=== PATIENT | female | born 2000 | race Two or more races ===

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

== ENCOUNTER 2018-06-22 11:44 | Emergency (ER) | payer MEDICAID ==
[~2018-06-22] VITALS: Ht 162.6 cm; Wt 95.7 kg
[2018-06-22 12:26] VITALS: BP 119/70
== END 2018-06-22 14:03 | disposition home or self-care (01) ==
LOC: ER 11:44
DX: O26.892 Other specified pregnancy related conditions, second trimester (principal); R10.9 Unspecified abdominal pain; N89.8 Other specified noninflammatory disorders of vagina; Z3A.16 16 weeks gestation of pregnancy
CPT/HCPCS: 76805; 81002

== ENCOUNTER 2024-01-22 08:34 | Emergency (ER) | payer MEDICAID ==
[~2024-01-22] VITALS: Ht 162.6 cm; Wt 116.6 kg
[2024-01-22 08:40] VITALS: TEMP 98.2
[2024-01-22 08:53] VITALS: BP 114/72
[2024-01-22 09:22] VITALS: PULSE 109; RESP 20; O2SAT 94
[2024-01-22] MEDS: KETOROLAC TROMETH 60MG/2ML VIAL IM ONE (09:54)
[2024-01-22] MEDS ORDERED: TRAM50TA2 PO (10:08)
== END 2024-01-22 10:15 | disposition home or self-care (01) ==
LOC: ER 08:34
DX: S86.811A Strain of other muscle(s) and tendon(s) at lower leg level, right leg, initial encounter (principal); F17.210 Nicotine dependence, cigarettes, uncomplicated; Z88.0 Allergy status to penicillin; Z79.899 Other long term (current) drug therapy; X50.1XXA Overexertion from prolonged static or awkward postures, initial encounter; Y93.21 Activity, ice skating; Y92.89 Other specified places as the place of occurrence of the external cause; Y99.8 Other external cause status
CPT/HCPCS: 73562; 96372; 99283; J1885